=== PATIENT | male | born 1990 | race Two or more races ===

== ENCOUNTER → 2017-02-22 | Outpatient (REF) | payer OTHER ==
[2017-02-22 11:47] LABS: MEAN CORPUSCULAR HEMOGLOBIN 29.8 pg (27.0-33.0); MEAN CORPUSCULAR HGB CONC 34.4 g/dl (32.0-36.5); MEAN CORPUSCULAR VOLUME 86.6 fl (80.0-96.0); RED CELL DISTRIBUTION WIDTH 12.8 % (11.5-14.5); WHITE BLOOD COUNT 5.3 K/mm3 (4.0-10.0)
[2017-02-22 12:09] LABS: ALBUMIN 4.2 GM/DL (3.2-5.2); ALBUMIN/GLOBULIN RATIO 1.27 (1.00-1.93); ALKALINE PHOSPHATASE 83 U/L (45-117); ALT/SGPT 24 U/L (12-78); ANION GAP 7 MEQ/L (8-16); AST/SGOT 13 U/L (15-37); BILIRUBIN,TOTAL 0.7 MG/DL (0.2-1.0); BLOOD UREA NITROGEN 16 MG/DL (7-18); CALCIUM LEVEL 8.8 MG/DL (8.5-10.1); CARBON DIOXIDE LEVEL 28 MEQ/L (21-32); CHLORIDE LEVEL 105 MEQ/L (98-107); CHOLESTEROL LEVEL 146 MG/DL (<200); GLOMERULAR FILTRATION RATE > 60.0 (>60); GLUCOSE, FASTING 82 MG/DL (70-105); POTASSIUM SERUM 4.3 MEQ/L (3.5-5.1); SODIUM LEVEL 140 MEQ/L (136-145); TOTAL PROTEIN 7.5 GM/DL (6.4-8.2); TRIGLYCERIDES LEVEL 72 MG/DL (<150)
== END ==
LOC: M SFHCLERA 08:31
PROVIDERS: ATTEND Family Medicine
DX: Z82.49 Family history of ischemic heart disease and other diseases of the circulatory system (principal); J98.01 Acute bronchospasm; R05 Cough; Z13.220 Encounter for screening for lipoid disorders

== ENCOUNTER → 2017-08-10 | Outpatient (REF) | payer OTHER | LOC: M SFHCLERA 14:58 | PROVIDERS: ATTEND Family Medicine | DX: Z11.1 Encounter for screening for respiratory tuberculosis (principal) ==

== ENCOUNTER 2019-07-23 15:34 | Emergency (ER) | payer OTHER ==
[~2019-07-23] VITALS: Ht 177.8 cm; Wt 75.0 kg
[~2019-07-23 15:34] MED LIST: RALTEGRAVIR 400 MG TAB (ISENTRESS) PO SCH; TRUVADA 200MG/300MG TABLET PO SCH
[2019-07-23 16:55] LABS: BASO % 0.4 % (0.0-1.0); HEMATOCRIT 43.6 % (42.0-52.0); HEMOGLOBIN 15.2 g/dl (13.5-17.5); LYMPH # 1.4 10^3/uL (1.5-5.0); LYMPH % 18.3 % (24.0-44.0); MEAN CORPUSCULAR HEMOGLOBIN 29.7 pg (27.0-33.0); MEAN CORPUSCULAR HGB CONC 34.9 g/dl (32.0-36.5); MEAN CORPUSCULAR VOLUME 85.2 fl (80.0-96.0); MONO # 0.6 10^3/uL (0.0-0.8); MONO % 7.9 % (0.0-5.0); NEUTROPHILS # 5.6 10^3/uL (1.5-8.5); NEUTROPHILS % 73.3 % (36.0-66.0); PLATELET COUNT, AUTOMATED 179 10^3/uL (150-450); RED BLOOD COUNT 5.12 10^6/uL (4.30-6.10); WHITE BLOOD COUNT 7.6 10^3/uL (4.0-10.0)
[2019-07-23] MEDS ORDERED: ADACEL/BOOSTRIX VACCINE (DIPHTH/PERTUSS/ACELL/TETANUS)0.5ML SYR (90715) IM ONE (17:15)
[2019-07-23] MEDS ORDERED: EXPOSURE KIT-ADULT 7 DAY SUPPLY PO ONE (17:15)
[2019-07-23 17:26] LABS: ALBUMIN 4.3 GM/DL (3.2-5.2); ALT/SGPT 28 U/L (12-78); BILIRUBIN,TOTAL 0.7 MG/DL (0.2-1.0); BLOOD UREA NITROGEN 15 MG/DL (7-18); CALCIUM LEVEL 9.3 MG/DL (8.5-10.1); CARBON DIOXIDE LEVEL 27 MEQ/L (21-32); CHLORIDE LEVEL 107 MEQ/L (98-107); CREATININE FOR GFR 0.88 MG/DL (0.70-1.30); GLOMERULAR FILTRATION RATE > 60.0 (>60); GLUCOSE, FASTING 77 MG/DL (70-100); POTASSIUM SERUM 4.3 MEQ/L (3.5-5.1); SODIUM LEVEL 141 MEQ/L (136-145); TOTAL PROTEIN 7.5 GM/DL (6.4-8.2)
[2019-07-23] MEDS ORDERED: [UNRECOGNIZED DRUG - OTHER] IM ONE (17:30)
[2019-07-23] MEDS ORDERED: RALT40TA PO (17:51)
[2019-07-23] MEDS ORDERED: TRUVTAB PO (17:51)
[2019-07-23 18:31] VITALS: BP 125/70
[2019-07-24 09:21] LABS: HEPATITIS B SURFACE ANTIBODY NEGATIVE (POSITIVE)
[2019-07-24 09:31] LABS: HEPATITIS B SURFACE ANTIGEN NEGATIVE (NEGATIVE)
[2019-07-24 09:59] LABS: HIV 1&2 SCREEN CENTAUR NEGATIVE (NEGATIVE)
[2019-07-24 12:18] LABS: HEPATITIS C VIRUS ABY INDEX 0.1 INDEX (<0.8)
== END 2019-07-23 18:43 | disposition home or self-care (01) ==
LOC: M ED 15:34
DX: Z20.5 Contact with and (suspected) exposure to viral hepatitis (principal); Y92.531 Health care provider office as the place of occurrence of the external cause; Y93.F9 Activity, other caregiving; Y99.0 Civilian activity done for income or pay; J30.2 Other seasonal allergic rhinitis; Z23 Encounter for immunization

== ENCOUNTER → 2022-10-05 | Outpatient (REF) | payer OTHER ==
[~2022-10-05] MED LIST changes: +EMTR1TAB16 PO; +RALT40TA PO; -RALTEGRAVIR 400 MG TAB (ISENTRESS) PO SCH; -TRUVADA 200MG/300MG TABLET PO SCH
== END ==
LOC: M SMT 17:44
PROVIDERS: ATTEND Urology
DX: Z30.2 Encounter for sterilization (principal)

== ENCOUNTER → 2022-12-07 | Outpatient (REF) | payer OTHER ==
[2022-12-07 12:06] LABS: SEMEN APPEARANCE OPAQUE (OPAQUE); SEMEN VISCOSITY LIQUID (LIQUID); SEMEN VOLUME 5.4 ml (2.0-5.0)
[2022-12-07 12:07] LABS: WBC CONCENTRATION <=1 M/ml (<=1 M/ml)
== END ==
LOC: M SMT 11:07
PROVIDERS: ATTEND Urology
DX: Z30.2 Encounter for sterilization (principal)

== ENCOUNTER → 2023-12-04 | Outpatient (CLI) | payer OTHER ==
[2023-12-04 16:36] LABS: BASO % 0.3 % (0.0-1.0); EOS # 0.2 10^3/uL (0.0-0.5); EOS % 2.6 % (0.0-3.0); HEMATOCRIT 46.5 % (42.0-52.0); HEMOGLOBIN 15.9 g/dl (13.5-17.5); LYMPH # 1.7 10^3/uL (1.5-5.0); LYMPH % 25.2 % (24.0-44.0); MEAN CORPUSCULAR HEMOGLOBIN 29.6 pg (27.0-33.0); MEAN CORPUSCULAR HGB CONC 34.2 g/dl (32.0-36.5); MEAN CORPUSCULAR VOLUME 86.6 fl (80.0-96.0); MONO # 0.4 10^3/uL (0.0-0.8); MONO % 6.7 % (2.0-8.0); NEUTROPHILS # 4.2 10^3/uL (1.5-8.5); NEUTROPHILS % 64.9 % (36.0-66.0); PLATELET COUNT, AUTOMATED 252 10^3/uL (150-450); RED BLOOD COUNT 5.37 10^6/uL (4.30-6.10); WHITE BLOOD COUNT 6.5 10^3/uL (4.0-10.0)
[2023-12-04 17:01] LABS: ALBUMIN 4.2 G/DL (3.2-5.2); ALKALINE PHOSPHATASE 89 U/L (46-116); ALT/SGPT 38 U/L (7.0-40); AST/SGOT 17 U/L (<34); BILIRUBIN,TOTAL 0.4 MG/DL (0.3-1.2); BLOOD UREA NITROGEN 16 MG/DL (9-23); CALCIUM LEVEL 9.3 MG/DL (8.5-10.1); CARBON DIOXIDE LEVEL 29 MMOL/L (20-31); CHLORIDE LEVEL 105 MMOL/L (98-107); CHOLESTEROL LEVEL 126 MG/DL (<200); CHOLESTEROL RISK RATIO 4.45 (<5); CREATININE FOR GFR 0.92 MG/DL (0.70-1.30); GLOMERULAR FILTRATION RATE > 60.0 (>60); GLUCOSE, FASTING 62 MG/DL (60-100); HDL CHOLESTEROL 28.3 MG/DL (>40); LDL CHOLESTEROL 65.3 MG/DL (<100); NON-HDL-C 97.7 MG/DL; POTASSIUM SERUM 4.2 MMOL/L (3.5-5.1); SODIUM LEVEL 140 MMOL/L (136-145); TOTAL PROTEIN 7.2 G/DL (5.7-8.2); TRIGLYCERIDES LEVEL 162 MG/DL (<150)
[2023-12-04 17:02] LABS: THYROID STIMULATING HORMONE 1.297 uIU/ML (0.55-4.78)
[2023-12-04 17:03] LABS: FOLATE 22.65 NG/ML (>5.4); FREE T4 1.22 NG/DL (0.89-1.76); VITAMIN B12 LEVEL 494 PG/ML (211-911)
== END ==
LOC: M WUC 14:46
PROVIDERS: ATTEND Family Medicine
DX: R00.2 Palpitations (principal)

== ENCOUNTER → 2023-12-21 | Outpatient (CLI) | payer OTHER | LOC: M PLAIMG 09:07 | PROVIDERS: ATTEND Family Medicine | DX: R00.2 Palpitations (principal) ==

== ENCOUNTER → 2024-05-21 | Outpatient (REF) | payer OTHER ==
[2024-05-21 13:05] LABS: APPEARANCE, URINE CLEAR (CLEAR); BACTERIA, URINE AUTO NEGATIVE (NEGATIVE); BILIRUBIN, URINE AUTO NEGATIVE (NEGATIVE); BLOOD, URINE BLOOD NEGATIVE (NEGATIVE); COLOR, URINE YELLOW (YELLOW); GLUCOSE, URINE (UA) AUTO NEGATIVE (NEGATIVE); KETONE, URINE AUTO NEGATIVE (NEGATIVE); LEUKOCYTE ESTERASE, URINE AUTO NEGATIVE (NEGATIVE); MUCUS, URINE SMALL (NEGATIVE); NITRITE, URINE AUTO NEGATIVE (NEGATIVE); PROTEIN, URINE AUTO NEGATIVE (NEGATIVE); RBC, URINE AUTO 0 /HPF (0-3); SPECIFIC GRAVITY URINE AUTO 1.023 (1.002-1.035); SQUAMOUS EPITHELIAL CELL UR AU 0 /HPF (0-6); UROBILINOGEN, URINE AUTO 0.2 mg/dL (0.0-2.0); WBC, URINE AUTO 0 /HPF (0-3)
== END ==
LOC: M SMT 12:36
PROVIDERS: ATTEND Physician Assistant
DX: N50.82 Scrotal pain (principal)

== ENCOUNTER → 2024-05-28 | Outpatient (CLI) | payer OTHER | LOC: M RAD 08:06 | PROVIDERS: ATTEND Physician Assistant | DX: N50.82 Scrotal pain (principal) ==

== ENCOUNTER → 2024-08-08 | Outpatient (CLI) | payer OTHER ==
[2024-08-08 13:00] LABS: BASO % 0.7 % (0.0-1.0); EOS # 0.1 10^3/uL (0.0-0.5); EOS % 2.2 % (0.0-3.0); HEMATOCRIT 45.7 % (42.0-52.0); HEMOGLOBIN 15.6 g/dl (13.5-17.5); LYMPH # 1.9 10^3/uL (1.5-5.0); LYMPH % 31.6 % (24.0-44.0); MEAN CORPUSCULAR HGB CONC 34.1 g/dl (32.0-36.5); MEAN CORPUSCULAR VOLUME 87.9 fl (80.0-96.0); MONO # 0.5 10^3/uL (0.0-0.8); MONO % 8.9 % (2.0-8.0); NEUTROPHILS # 3.3 10^3/uL (1.5-8.5); NEUTROPHILS % 54.9 % (36.0-66.0); PLATELET COUNT, AUTOMATED 219 10^3/uL (150-450)
[2024-08-08 13:54] LABS: ALBUMIN 4.1 G/DL (3.2-5.2); ALKALINE PHOSPHATASE 108 U/L (46-116); ALT/SGPT 39 U/L (7.0-40); AST/SGOT 11 U/L (<34); BILIRUBIN,TOTAL 0.4 MG/DL (0.3-1.2); BLOOD UREA NITROGEN 19 MG/DL (9-23); CALCIUM LEVEL 9.9 MG/DL (8.5-10.1); CARBON DIOXIDE LEVEL 30 MMOL/L (20-31); CHLORIDE LEVEL 106 MMOL/L (98-107); CREATININE FOR GFR 0.83 MG/DL (0.70-1.30); FOLATE 11.58 NG/ML (>5.4); FREE T4 1.37 NG/DL (0.89-1.76); GLOMERULAR FILTRATION RATE > 60.0 (>60); GLUCOSE, FASTING 68 MG/DL (60-100); POTASSIUM SERUM 4.4 MMOL/L (3.5-5.1); SODIUM LEVEL 139 MMOL/L (136-145); THYROID STIMULATING HORMONE 1.557 uIU/ML (0.55-4.78); TOTAL PROTEIN 7.4 G/DL (5.7-8.2); VITAMIN B12 LEVEL 494 PG/ML (211-911)
== END ==
LOC: M WUC 10:40
PROVIDERS: ATTEND Family Medicine
DX: R53.83 Other fatigue (principal)